=== PATIENT | female | born 1985 | race Caucasian/White ===

== ENCOUNTER 2017-11-13 20:00 | Emergency (ER) | payer BC ==
[2017-11-13 20:14] VITALS: BMI 27.7
[2017-11-13] MEDS ORDERED: Sodium Chloride 0.9% 1,000 ML IV STA (20:14)
--- NOTE | 2017-11-13 20:17 | ED PDOC ---
Arrival/HPI - General Historian: Patient <Brooks Saunders - Last Filed: 11/13/17 21:20> <Jona Sharp - Last Filed: 11/13/17 22:37> - General Time Seen by Provider: 11/13/17 20:06 - History of Present Illness Narrative History of Present Illness (Text): 11/13/17 20:14 32yo female who present with complaint of right sided pelvic abdominal pain and vaginal spotting. Pt states her LMP was September 22. Notes history of 2posittive home test. Report right flank/pelvic pain x 3days. States she noticed blood when she wiped herself this evening. Denies any current vaginal bleeding. denies nausea, vomiting, diarrhea, constipation, fever, chills , urinary symptoms, sick contact, any other complaint. (Brooks Saunders A) Past Medical History - Provider Review Nursing Documentation Reviewed: Yes <NickyBrooks - Last Filed: 11/13/17 21:20> Family/Social History - Physician Review Nursing Documentation Reviewed: Yes Family/Social History: Unknown Family HX <NickyBrooks Holland - Last Filed: 11/13/17 21:20> Allergies/Home Meds <Brooks Saunders - Last Filed: 11/13/17 21:20> <Jona Sharp - Last Filed: 11/13/17 22:37> Allergies/Adverse Reactions: Allergies No Known Allergies Allergy (Verified 11/13/17 20:12) Review of Systems - Physician Review All systems were reviewed & negative as marked: Yes - Review of Systems Constitutional: Normal Eyes: Normal ENT: Normal Respiratory: Normal Cardiovascular: Normal Gastrointestinal: Abdominal Pain. absent: Constipation, Diarrhea, Nausea, Vomiting, Hematemesis Genitourinary Female: Vaginal Bleeding. absent: Dysuria, Frequency Musculoskeletal: Normal Skin: Normal Neurological: Normal Endocrine: Normal Hemo/Lymphatic: Normal Psychiatric: Normal <NickyBrooks A - Last Filed: 11/13/17 21:20> Physical Exam Vital Signs Reviewed: Yes Temperature: Afebrile Blood Pressure: Normal Pulse: Regular Respiratory Rate: Normal Appearance: Positive for: Well-Appearing, Non-Toxic, Comfortable Pain Distress: None Mental Status: Positive for: Alert and Oriented X 3 - Systems Exam Head: Present: Atraumatic, Normocephalic Pupils: Present: PERRL Extroacular Muscles: Present: EOMI Conjunctiva: Present: Normal Mouth: Present: Moist Mucous Membranes Neck: Present: Normal Range of Motion Respiratory/Chest: Present: Clear to Auscultation, Good Air Exchange. No: Respiratory Distress, Accessory Muscle Use Cardiovascular: Present: Regular Rate and Rhythm, Normal S1, S2. No: Murmurs Abdomen: Present: Tenderness (Right pelvic), Other (soft). No: Distention, Peritoneal Signs, Rebound, Guarding, McBurney's Point Tender, Rovsing's Sign Present Back: Present: Normal Inspection Upper Extremity: Present: Normal Inspection. No: Cyanosis, Edema Lower Extremity: Present: Normal Inspection. No: Edema Neurological: Present: GCS=15, CN II-XII Intact, Speech Normal Skin: Present: Warm, Dry, Normal Color. No: Rashes Psychiatric: Present: Alert, Oriented x 3, Normal Insight, Normal Concentration <Brooks Saunders A - Last Filed: 11/13/17 21:20> Vital Signs Temp Pulse Resp BP Pulse Ox 11/13/17 20:12 98.4 F 71 18 111/62 100 Medical Decision Making <Brooks Saunders A - Last Filed: 11/13/17 21:20> <Jona Sharp - Last Filed: 11/13/17 22:37> ED Course and Treatment: 11/13/17 21:20 32yo female present with right sided abdominal pain and spotting. she was comfortable and hemodynamically stable in ED Labs Transvaginal US 1L NS was ordered Case endorsed to Dr. Sharp to f/u with labs and US and dispo pt. (Nicky Happiness A) - Lab Interpretations Lab Results: 11/13/17 21:00 11/13/17 21:00 Lab Results 11/13/17 21:00: Sodium 141, Potassium 3.8, Chloride 103, Carbon Dioxide 25, Anion Gap 17, BUN 18, Creatinine 0.9, Est GFR ( Amer) > 60, Est GFR (Non- Af Amer) > 60, Random Glucose 97, Calcium 9.6, Total Bilirubin 0.2, AST 18, ALT 15, Alkaline Phosphatase 59, Total Protein 7.4, Albumin 4.3, Globulin 3.2, Albumin/Globulin Ratio 1.4 11/13/17 21:00: PT 12.2, INR 1.07, APTT 29.0 11/13/17 21:00: WBC 5.1, RBC 4.25, Hgb 10.8 L, Hct 32.8 L, MCV 77.2 L, MCH 25.4 , MCHC 32.9, RDW 15.5 H, Plt Count 272, MPV 10.8, Gran % 37.3 L, Lymph % (Auto) 52.1 H, [place] % (Auto) 8.6 H, Eos % (Auto) 1.0 L, Baso % (Auto) 1.0, Gran # 1.91 , Lymph # (Auto) 2.7, [place] # (Auto) 0.4, Eos # (Auto) 0.1, Baso # (Auto) 0.05 11/13/17 20:19: Urine Color Yellow, Urine Appearance Clear, Urine pH 7.5, Ur Specific [place] 1.015, Urine Protein Negative, Urine Glucose (UA) Negative, Urine Ketones Negative, Urine Blood Large H, Urine Nitrate Negative, Urine Bilirubin Negative, Urine Urobilinogen 0.2, Ur Leukocyte Esterase Trace H, Urine RBC 20 - 25, Urine WBC 2 - 5, Ur Epithelial Cells 4 - 5, Urine HCG, Qual Positive - RAD Interpretation Radiology Orders: 11/13/17 20:12 OB TRANSVAGINAL [US] Stat - Medication Orders Current Medication Orders: Discontinued Medications Sodium Chloride (Sodium Chloride 0.9%) 1,000 mls @ 999 mls/hr IV .Q1H1M STA Stop: 11/13/17 21:14 Last Admin: 11/13/17 21:12 Dose: 999 mls/hr eMAR Start Stop Document 11/13/17 21:12 AD (Rec: 11/13/17 21:12 AD [facility] [place]) Intravenous Solution Start Date 11/13/17 Start Time 21:12 - PA / BROADCAST TRAFFIC COORDINATOR / Resident Statement / has reviewed & agrees with the documentation as recorded. COBY has examined the patient and agrees with the treatment plan. <Jona Sharp - Last Filed: 11/13/17 22:37> Disposition/Present on Arrival <Brooks Saunders - Last Filed: 11/13/17 21:20> - Present on Arrival Any Indicators Present on Arrival: No - Disposition Have Diagnosis and Disposition been Completed?: Yes Disposition Time: 22:36 <Jona Sharp - Last Filed: 11/13/17 22:37> - Disposition Diagnosis: Threatened Disposition: HOME/ ROUTINE Condition: GOOD Discharge Instructions (ExitCare): Threatened Miscarriage Additional Instructions: follow up with your child development consultant as soon as possible Forms: [employer] ([place])
[2017-11-13 20:44] LABS: PH,URINE 7.5 (4.7-8.0); URINE APPEARANCE CLEAR (CLEAR); URINE BILIRUBIN NEGATIVE (NEGATIVE); URINE BLOOD LARGE (NEGATIVE); URINE COLOR YELLOW (YELLOW); URINE GLUCOSE (UA) NEGATIVE (NEGATIVE); URINE LEUKOCYTE ESTERASE TRACE Leu/uL (NEGATIVE); URINE PROTEIN NEGATIVE mg/dL (<30 mg/dL); URINE UROBILINOGEN 0.2 E.U./dL (<1 E.U./dL)
[2017-11-13 20:47] LABS: HCG,QUALITATIVE URINE POSITIVE (NEGATIVE); URINE RBC 20 - 25 /hpf (0-2)
[2017-11-13 21:12] VITALS: RESP 18; TEMP 98.4; O2SAT 100
[2017-11-13 21:24] LABS: BASO # 0.05 K/mm3 (0.0-2.0); EOS # 0.1 (0.0-0.7); GRAN # 1.91 (1.4-6.5); GRAN % 37.3 % (50.0-68.0); HEMOGLOBIN 10.8 g/dL (12.0-16.0); LYMPH # 2.7 (1.2-3.4); LYMPH % 52.1 % (22.0-35.0); MEAN CELL VOLUME 77.2 fl (80.0-105.0); MEAN CORPUSCULAR HEMOGLOBIN 25.4 pg (25.0-35.0); MEAN CORPUSCULAR HGB CONC 32.9 g/dl (31.0-37.0); MEAN PLATELET VOLUME 10.8 fl (7.0-11.0); MONO # 0.4 (0.1-0.6); MONO % 8.6 % (1.0-6.0); RBC 4.25 10^6/uL (3.5-6.1); RED CELL DISTRIBUTION WIDTH 15.5 % (11.5-14.5); WHITE BLOOD COUNT 5.1 10^3/ul (4.5-11.0)
[2017-11-13 21:31] LABS: ALB/GLOB RATIO 1.4 (1.1-1.8); ALBUMIN 4.3 g/dL (3.0-4.8); ALT/SGPT 15 U/L (7-56); AST/SGOT 18 U/L (14-36); BLOOD UREA NITROGEN 18 mg/dL (7-21); CALCIUM 9.6 mg/dL (8.4-10.5); GFR AFRICAN-AMERICAN > 60; GFR NON-AFRICAN AMERICAN > 60
[2017-11-13 21:35] LABS: INR 1.07 (0.93-1.08); PROTHROMBIN TIME 12.2 SECONDS (9.4-12.5)
[2017-11-13 23:03] VITALS: BP 115/75; PULSE 75
--- NOTE | 2017-11-14 09:17 | US ---
PROCEDURE: First trimester ultrasound. HISTORY: presenting with vaginal bleeding. COMPARISON: None available. TECHNIQUE: Standard protocol for this study/examination. FINDINGS: LMP: 10/02/2017 Prior examinations from the current : None TECHNIQUE: Real-time 2D imaging, duplex and color Doppler. FINDINGS: Cardiac activity: Present Rate: 149 BPM Measurements: [place] rump length: 0.24 cm Gestational age based on CRL 5 weeks 5 days Gestational age out of range below threshold based on gestational sac measurement 0.48 cm Gestational age derived from LMP: Six weeks JOSY based on LMP: 07/09/2018 JOSY based on biometry: 07/11/2018 Gestational concordance documented Yolk sac not identified Uterus: Unremarkable. Cervix: No Cervical abnormalities: Negative examination for cervical dilatation or effacement. Closed cervix measuring 3.14 cm Subchorionic hemorrhage: None UTERUS: 5.5 x 5.8 x 7.6 cm. Location of fibroid and size: Sub serosal in posterior 2.2 x 1.9 cm ADNEXA: Right: 1.6 x 1.6 x 2.3 cm. Normal Doppler arterial waveform documented. Left: 1.4 x 1.6 x 2.5 cm. Normal Doppler arterial waveform documented Fluid in the cul-de-sac: None IMPRESSION: Five weeks 5 days live intrauterine gestation. Gestational concordance documented. Concordant results (preliminary interpretation) provided by [employer]. Procedure Completed: 20:51 Preliminary ([employer]) Report: Dictated and Authenticated: 22:05 Final Interpretation: 09:16 November 14, 2017.
== END 2017-11-13 22:45 | disposition home or self-care (01) ==
LOC: EDBD → EDUNIT# 20:00 → UNMERGE 20:00 → MERGE 20:00 → ED 20:00
DX: O20.0 Threatened abortion (principal); Z3A.01 Less than 8 weeks gestation of pregnancy
CPT/HCPCS: 76817; 80053; 81001; 84702; 84703; 85025; 85610; 85730; 87086; 99283; J7030